=== PATIENT | female | born 1930 | race Caucasian/White ===

== ENCOUNTER 2019-04-12 19:33 | Emergency (ER) | payer OTHER ==
[~2019-04-12] VITALS: Ht 167.6 cm; Wt 63.5 kg
--- NOTE | 2019-04-12 19:36 | NUR ---
PT BIBRA78, PER EMS GLF FROM [place], L WRIST DEFORMITY, R FA ABRASION. PT AXO2. RESPIRATIONS EVEN AND UNLABORED. 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 PENDING EVAL FROM ER .
[2019-04-12] MEDS ORDERED: ONDANSETRON HCL/PF 4 MG/2 ML VIAL IVP ONE (20:00)
[2019-04-12] MEDS ORDERED: IV NS 0.9% 1,000 ML BAG IV ONE (20:00)
[2019-04-12] MEDS ORDERED: MORPHINE SULFATE INJ 2 MG/ML DISP.SYRIN IV ONE (20:00)
[2019-04-12 20:05] LABS: BASOPHILS % (AUTO) 0.4 % (0.0-2.0); EOSINOPHILS % (AUTO) 1.2 % (0.0-6.0); HEMATOCRIT 41 % (33-45); HEMOGLOBIN 13.5 g/dL (11.5-14.8); LYMPHOCYTES # (AUTO) 2.1 /CMM (0.8-4.8); MEAN CORPUSCULAR HGB CONC 33 g/dl (31.0-36.0); MEAN CORPUSCULAR VOLUME 93 fL (82-100); MONOCYTES # (AUTO) 0.6 /CMM (0.1-1.30); MONOCYTES % (AUTO) 8.9 % (2.0-12.0); NEUTROPHILS # (AUTO) 4.3 /CMM (1.8-8.9); NEUTROPHILS % (AUTO) 60.5 % (43.0-81.0); PLATELET COUNT (AUTO) 240 /CMM (150-450); RED BLOOD CELL COUNT(AUTO) 4.34 MIL/uL (4.0-5.2); WHITE BLOOD COUNT (AUTO) 7.1 K/uL (4.3-11.0)
[2019-04-12] MEDS ORDERED: ONDANSETRON HCL/PF 4 MG/2 ML VIAL ONE (20:05)
[2019-04-12] MEDS ORDERED: MORPHINE SULFATE INJ 4 MG/ML DISP.SYRIN ONE (20:05)
[2019-04-12 20:12] LABS: CALCIUM, SERUM 9.2 mg/dL (8.5-10.1); POTASSIUM 4.7 mmol/L (3.5-5.1)
--- NOTE | 2019-04-12 20:18 | NUR ---
XRAY AT BEDSIDE.
[2019-04-12 20:25] VITALS: BP 147/52
--- NOTE | 2019-04-12 20:56 | NUR ---
PT RESTING IN BED, NAD NOTED. WILL CONTINUE TO MONITOR.
--- NOTE | 2019-04-12 21:44 | NUR ---
CALL FROM [place] [facility]. PT ACCEPTED TO [facility] BY DR PAIZ. # FOR REPORT [phone]
--- NOTE | 2019-04-12 21:54 | NUR ---
REPORT GIVEN TO NIMCO POSADA AT [place] FOR [facility].
== END 2019-04-12 22:04 | disposition short-term general hospital (02) ==
LOC: ER 19:35
DX: S52.592A Other fractures of lower end of left radius, initial encounter for closed fracture (principal); S52.612A Displaced fracture of left ulna styloid process, initial encounter for closed fracture; R10.2 Pelvic and perineal pain; G30.9 Alzheimer's disease, unspecified; F02.80 Dementia in other diseases classified elsewhere, unspecified severity, without behavioral disturbance, psychotic disturbance, mood disturbance, and anxiety; I10 Essential (primary) hypertension; K21.9 Gastro-esophageal reflux disease without esophagitis; Z88.6 Allergy status to analgesic agent; Z88.9 Allergy status to unspecified drugs, medicaments and biological substances; Z88.8 Allergy status to other drugs, medicaments and biological substances; W18.39XA Other fall on same level, initial encounter; Y93.89 Activity, other specified; Y92.89 Other specified places as the place of occurrence of the external cause; Y99.8 Other external cause status
CPT/HCPCS: 25605; 36415; 71045; 72170; 73100; 80048; 85025; 85730; 96374; 96375; 99285; J2270; J2405; J7030

== ENCOUNTER 2019-04-21 09:24 | Emergency (ER) | payer OTHER ==
[~2019-04-21] VITALS: Ht 157.5 cm; Wt 63.5 kg
[2019-04-21] MEDS ORDERED: LOPE-195 PO (09:33)
[2019-04-21] MEDS ORDERED: CALC500T52 PO (09:33)
[2019-04-21] MEDS ORDERED: DONE10TA44 PO (09:33)
[2019-04-21] MEDS ORDERED: ATOR10TA PO (09:33)
[2019-04-21] MEDS ORDERED: CHOL100044 PO (09:33)
[2019-04-21] MEDS ORDERED: MELO-105 PO (09:33)
[2019-04-21] MEDS ORDERED: HYDR12.55 PO (09:33)
[2019-04-21] MEDS ORDERED: LISI40TA4 PO (09:33)
[2019-04-21] MEDS ORDERED: OMEP20CA11 PO (09:33)
[2019-04-21] MEDS ORDERED: BIOT1TAB PO (09:33)
--- NOTE | 2019-04-21 09:39 | NUR ---
PT BIBA RA 78 From "[place] witnessed tonic/clonic sz by staff lasting minute." PT IS AAOX1, NOT IN RESPIRATORY DISTRESS, HOOKED TO MONITOR, KEPT RESTED AND COMFORTABLE, WILL CONTINUE TO MONITOR.
--- NOTE | 2019-04-21 09:45 | NUR ---
SEEN AND EXAMINED BY .
[2019-04-21] MEDS ORDERED: IV NS 0.9% 500 ML BAG IV ONE (10:00)
--- NOTE | 2019-04-21 10:00 | NUR ---
IV LINE ESTABLISHED, BLOOD DRAWNED AND SENT TO LAB.
[2019-04-21 10:10] LABS: BASOPHILS # (AUTO) 0.1 /CMM (0.0-0.2); BASOPHILS % (AUTO) 0.7 % (0.0-2.0); EOSINOPHILS % (AUTO) 1.1 % (0.0-6.0); HEMATOCRIT 43 % (33-45); HEMOGLOBIN 14.2 g/dL (11.5-14.8); LYMPHOCYTES # (AUTO) 1.8 /CMM (0.8-4.8); MEAN CORPUSCULAR HGB CONC 33 g/dl (31.0-36.0); MEAN CORPUSCULAR VOLUME 94 fL (82-100); MONOCYTES # (AUTO) 0.5 /CMM (0.1-1.30); MONOCYTES % (AUTO) 6.2 % (2.0-12.0); NEUTROPHILS # (AUTO) 5.8 /CMM (1.8-8.9); PLATELET COUNT (AUTO) 275 /CMM (150-450); RED BLOOD CELL COUNT(AUTO) 4.53 MIL/uL (4.0-5.2); WHITE BLOOD COUNT (AUTO) 8.4 K/uL (4.3-11.0)
[2019-04-21 10:18] LABS: CALCIUM, SERUM 9.1 mg/dL (8.5-10.1); CREATININE 0.9 mg/dL (0.6-1.3); POTASSIUM 4.3 mmol/L (3.5-5.1)
[2019-04-21 10:24] LABS: ALBUMIN 3.5 g/dL (3.4-5.0); BILIRUBIN,DIRECT 0.1 mg/dL (0.0-0.2); BILIRUBIN,TOTAL 0.5 mg/dL (0.2-1.0); TOTAL PROTEIN, SERUM 6.6 g/dL (6.4-8.2)
--- NOTE | 2019-04-21 10:24 | NUR ---
URINE SPECIMEN COLLECTED AND SENT TO LAB.
--- NOTE | 2019-04-21 10:40 | NUR ---
BATTER DEPOSITOR AT BEDSIDE FOR XRAY.
--- NOTE | 2019-04-21 10:45 | NUR ---
PT IS WHEELED TO CT SCAN [facility]IA [facility].
--- NOTE | 2019-04-21 12:02 | NUR ---
CALLED [facility] PRODUCTION HAND GABRIEL RDZ MD, AWAITING CALL BACK
--- NOTE | 2019-04-21 12:44 | NUR ---
TRANSFER INFO:MD DAKOTAH WALSH J. RN FOR REPORT [phone], [facility] ETA [phone]
--- NOTE | 2019-04-21 12:45 | NUR ---
CALLED [facility] FOR REPORT, NO ANSWER.
--- NOTE | 2019-04-21 13:06 | NUR ---
REPORT GIVEN TO ALBINO DONIS FOR [facility] IN [facility].
--- NOTE | 2019-04-21 13:12 | NUR ---
REPORT GIVEN TO EMT FOR PT TRANSFER TO [facility].
[2019-04-21 13:19] VITALS: BP 139/59
== END 2019-04-21 13:20 | disposition short-term general hospital (02) ==
LOC: ER 09:24
DX: R56.9 Unspecified convulsions (principal); K21.9 Gastro-esophageal reflux disease without esophagitis; G30.9 Alzheimer's disease, unspecified; F02.80 Dementia in other diseases classified elsewhere, unspecified severity, without behavioral disturbance, psychotic disturbance, mood disturbance, and anxiety; I10 Essential (primary) hypertension; Z88.6 Allergy status to analgesic agent; Z88.9 Allergy status to unspecified drugs, medicaments and biological substances; Z88.8 Allergy status to other drugs, medicaments and biological substances
CPT/HCPCS: 36415; 70450; 71045; 80048; 80076; 80305; 85025; 93005; 99285; J7040

== ENCOUNTER 2019-05-03 01:15 | Emergency (ER) | payer OTHER ==
[~2019-05-03] VITALS: Ht 157.5 cm; Wt 62.6 kg
[~2019-05-03 01:15] MED LIST: ATOR10TA PO; BIOT1TAB PO; CALC500T52 PO; CHOL100044 PO; DONE10TA44 PO; HYDR12.55 PO; LISI40TA4 PO; LOPE-195 PO; MELO-105 PO; OMEP20CA11 PO
--- NOTE | 2019-05-03 01:26 | NUR ---
TIMUR FROM [facility]. TO ER BED 9. AAOX1 W/ CONFUSION. NO RESP DISTRESS NOTED. BROUGHT IN FOR UNWITNESSED GLF. PER EMS REPORT, PT WAS FOUND DOWN BY STAFF. PT DENIES OF ANY PAIN WHEN STATIONARY BUT NOTED PAIN IS PRESENT WHEN MOVING. L LOWER EXTREMETY IS POSITIVE FOR SHORTENING AND EXTERNAL ROTATION. MD AT BEDSIDE FOR EVAL. ORDERS RECEIVED NOTED, AND CARRIED OUT. PT TO CT ON [facility].
--- NOTE | 2019-05-03 01:28 | NUR ---
PT IS ALSO NOTED WITH A LEFT UPPER EXTREMETY CAST FROM A PREVIOUS FALL, NO REPORT FROM EMS FOR EXACT DATE
[2019-05-03] MEDS ORDERED: MORPHINE SULFATE INJ 2 MG/ML DISP.SYRIN ONE (01:50)
[2019-05-03] MEDS ORDERED: ONDANSETRON HCL/PF 4 MG/2 ML VIAL ONE (01:50)
--- NOTE | 2019-05-03 01:55 | NUR ---
[facility] CALLED, WILL C/B FOR MD TO MD CONSULT.
[2019-05-03] MEDS ORDERED: ONDANSETRON HCL/PF 4 MG/2 ML VIAL IVP ONE (02:00)
[2019-05-03] MEDS ORDERED: IV NS 0.9% 500 ML BAG IV ONE (02:00)
[2019-05-03] MEDS ORDERED: MORPHINE SULFATE INJ 2 MG/ML DISP.SYRIN IV ONE (02:00)
--- NOTE | 2019-05-03 02:16 | NUR ---
ACCEPTED AT [facility] BY DR. PIMENTEL CALL ER [phone] FOR REPORT. [facility] ETA 310.
[2019-05-03 02:22] LABS: BASOPHILS # (AUTO) 0.1 /CMM (0.0-0.2); BASOPHILS % (AUTO) 0.6 % (0.0-2.0); EOSINOPHILS % (AUTO) 1.1 % (0.0-6.0); HEMATOCRIT 42 % (33-45); HEMOGLOBIN 13.9 g/dL (11.5-14.8); LYMPHOCYTES # (AUTO) 1.7 /CMM (0.8-4.8); LYMPHOCYTES % (AUTO) 16.6 % (20.0-44.0); MEAN CORPUSCULAR HGB CONC 33 g/dl (31.0-36.0); MEAN CORPUSCULAR VOLUME 94 fL (82-100); MONOCYTES # (AUTO) 0.8 /CMM (0.1-1.30); MONOCYTES % (AUTO) 7.4 % (2.0-12.0); NEUTROPHILS # (AUTO) 7.8 /CMM (1.8-8.9); NEUTROPHILS % (AUTO) 74.3 % (43.0-81.0); PLATELET COUNT (AUTO) 287 /CMM (150-450); RED BLOOD CELL COUNT(AUTO) 4.48 MIL/uL (4.0-5.2); WHITE BLOOD COUNT (AUTO) 10.5 K/uL (4.3-11.0)
[2019-05-03 02:30] LABS: CALCIUM, SERUM 8.4 mg/dL (8.5-10.1); CARBON DIOXIDE 26 mmol/L (21-32); CHLORIDE 108 mmol/L (98-107); CREATININE 0.7 mg/dL (0.6-1.3); GLUCOSE 102 mg/dL (74-106); POTASSIUM 5.1 mmol/L (3.5-5.1); SODIUM SERUM 144 mmol/L (136-145); UREA NITROGEN, BLOOD 17 mg/dL (7-18)
--- NOTE | 2019-05-03 02:34 | NUR ---
CALLED [facility] FOR REPORT, PLACED ON HOLD NO ANSWER
--- NOTE | 2019-05-03 02:38 | NUR ---
CALLED AGAIN FOR THE 2ND TIME TO GIVE REPORT. SPOKE WITH AIXA PLACED ON HOLD NO ANSWER BACK
--- NOTE | 2019-05-03 02:55 | NUR ---
REPORT GIVEN TO NHAN, CHARGE NURSE FOR [facility] AT [facility]
[2019-05-03 03:04] VITALS: BP 148/88
--- NOTE | 2019-05-03 03:19 | NUR ---
[facility] AMB 98 AT BEDSIDE FOR PT TRANSPORT TO [facility]. REPORT GIVEN. PT IS STABLE FOR TRANSPORT. NAD NOTED.
== END 2019-05-03 03:24 | disposition short-term general hospital (02) ==
LOC: ER 01:15
DX: S72.142A Displaced intertrochanteric fracture of left femur, initial encounter for closed fracture (principal); I10 Essential (primary) hypertension; K21.9 Gastro-esophageal reflux disease without esophagitis; G30.9 Alzheimer's disease, unspecified; F02.80 Dementia in other diseases classified elsewhere, unspecified severity, without behavioral disturbance, psychotic disturbance, mood disturbance, and anxiety; Z88.6 Allergy status to analgesic agent; Z88.8 Allergy status to other drugs, medicaments and biological substances; Z79.899 Other long term (current) drug therapy; W18.39XA Other fall on same level, initial encounter; Y93.89 Activity, other specified; Y92.89 Other specified places as the place of occurrence of the external cause; Y99.8 Other external cause status
CPT/HCPCS: 36415; 70450; 73503; 80048; 85025; 85730; 96374; 96375; 99285; J2270; J2405; J7040; 73502

== ENCOUNTER 2019-06-08 10:04 | Emergency (ER) | payer OTHER ==
[~2019-06-08] VITALS: Ht 162.6 cm; Wt 61.2 kg
--- NOTE | 2019-06-08 10:08 | NUR ---
pt brought in by paramedics for seizures witnessed by pediatric care coordinator pt lives in [facility]. currently pt alert and awake in [facility] by md cochran in [facility] will continue to monitor.
[2019-06-08] MEDS ORDERED: LEVETIRACETAM (500MG) 500 MG in IV NS 0.9% 100 ML IV SCH (11:00)
--- NOTE | 2019-06-08 11:04 | NUR ---
daughter at bedside refused PIV and seizure medication pt is a [employer] member
[2019-06-08 11:11] LABS: BASOPHILS % (AUTO) 0.4 % (0.0-2.0); EOSINOPHILS % (AUTO) 0.7 % (0.0-6.0); HEMATOCRIT 45 % (33-45); HEMOGLOBIN 14.8 g/dL (11.5-14.8); LYMPHOCYTES # (AUTO) 1.6 /CMM (0.8-4.8); LYMPHOCYTES % (AUTO) 18.7 % (20.0-44.0); MEAN CORPUSCULAR HGB CONC 33 g/dl (31.0-36.0); MEAN CORPUSCULAR VOLUME 93 fL (82-100); MONOCYTES # (AUTO) 0.5 /CMM (0.1-1.30); MONOCYTES % (AUTO) 5.5 % (2.0-12.0); NEUTROPHILS # (AUTO) 6.2 /CMM (1.8-8.9); NEUTROPHILS % (AUTO) 74.7 % (43.0-81.0); PLATELET COUNT (AUTO) 244 /CMM (150-450); RED BLOOD CELL COUNT(AUTO) 4.87 MIL/uL (4.0-5.2); WHITE BLOOD COUNT (AUTO) 8.4 K/uL (4.3-11.0)
[2019-06-08 11:22] LABS: CALCIUM, SERUM 8.9 mg/dL (8.5-10.1); CREATININE 0.9 mg/dL (0.6-1.3); POTASSIUM 4.5 mmol/L (3.5-5.1)
--- NOTE | 2019-06-08 12:31 | NUR ---
pt discharge to daughter and at daughter's request who will take pt to [facility] pt stable dressed appropriately
[2019-06-08 12:37] VITALS: BP 146/70
== END 2019-06-08 12:37 | disposition home or self-care (01) ==
LOC: ER 10:06
DX: G40.909 Epilepsy, unspecified, not intractable, without status epilepticus (principal); G30.9 Alzheimer's disease, unspecified; I10 Essential (primary) hypertension; K21.9 Gastro-esophageal reflux disease without esophagitis; Z88.6 Allergy status to analgesic agent; Z79.899 Other long term (current) drug therapy; Z88.9 Allergy status to unspecified drugs, medicaments and biological substances; Z88.8 Allergy status to other drugs, medicaments and biological substances
CPT/HCPCS: 36415; 80048-TC; 85025-TC; J1953; J7030

== ENCOUNTER 2019-11-17 09:31 | Emergency (ER) | payer OTHER ==
[~2019-11-17] VITALS: Ht 160 cm; Wt 54.0 kg
[~2019-11-17 09:31] MED LIST changes: -OMEP20CA11 PO; +OMEP20CA15 PO
[2019-11-17] MEDS ORDERED: TRAMADOL HCL 50 MG TABLET ONE (09:44)
[2019-11-17] MEDS ORDERED: VIT1CAPS4 PO (09:56)
--- NOTE | 2019-11-17 09:59 | NUR ---
PT REC'D TO ER VIA EMS FROM [facility] WHILE WALKING HIT LEFT SIDE FOREHEAD ABRASION REDNESS . RT HAND PAIN HOLDING IT LEFT ARM SNELL TEAR CLENED DRESSEED OLD SKIN TEARS NOTED . NO TALKING DEMETIA MONITORS APPLIED DNR
[2019-11-17] MEDS ORDERED: TRAMADOL HCL 50 MG TABLET PO ONE (10:00)
--- NOTE | 2019-11-17 10:01 | NUR ---
GIVEN ULTRAM 50 GMG PO TOLERATED WELL
--- NOTE | 2019-11-17 10:13 | NUR ---
SENT HER TO CT
--- NOTE | 2019-11-17 10:54 | NUR ---
CALLED [facility] [phone] KWONG WILL CALL US BACK
--- NOTE | 2019-11-17 10:55 | NUR ---
pt stable transfer back to [facility]
--- NOTE | 2019-11-17 11:26 | NUR ---
[facility] CALLED. AMBULANCE TRANSFER ETA 1230.
--- NOTE | 2019-11-17 13:09 | NUR ---
Patient discharged to home in stable condition. Written and verbal after care instructions given. Patient verbalizes understanding of instruction.
[2019-11-17 13:11] VITALS: BP 155/70
== END 2019-11-17 13:11 ==
LOC: ER 09:32
DX: S00.83XA Contusion of other part of head, initial encounter (principal); M25.531 Pain in right wrist; I10 Essential (primary) hypertension; K21.9 Gastro-esophageal reflux disease without esophagitis; G30.9 Alzheimer's disease, unspecified; F02.80 Dementia in other diseases classified elsewhere, unspecified severity, without behavioral disturbance, psychotic disturbance, mood disturbance, and anxiety; Z88.6 Allergy status to analgesic agent; Z88.8 Allergy status to other drugs, medicaments and biological substances; Z79.899 Other long term (current) drug therapy; W18.39XA Other fall on same level, initial encounter; Y93.89 Activity, other specified; Y92.89 Other specified places as the place of occurrence of the external cause; Y99.8 Other external cause status
CPT/HCPCS: 70450-TC; 73090-TC; 73100-TC

== ENCOUNTER 2021-05-12 11:49 | Emergency (ER) | payer OTHER ==
[~2021-05-12] VITALS: Ht 160 cm; Wt 54.4 kg
[~2021-05-12 11:49] MED LIST changes: +LISI40TA13 PO; -LISI40TA4 PO; +VIT1CAPS4 PO
--- NOTE | 2021-05-12 12:00 | NUR ---
BIBRA78 C/O RIGHT HAND SWELLING X 10 DAYS. PT IS SLEEPING, AROUSABLE TO TOUCH AND PAIN. PLACED ON 3L NASAL CANULLA. PULSE OX 98%
--- NOTE | 2021-05-12 12:03 | NUR ---
CALLED [facility] [phone] PT PFIZER AUG 12 AND Aug PT NEGATIVE OF 05/07/2021 PER FE.
--- NOTE | 2021-05-12 13:33 | NUR ---
ULTRASOUND AT BEDSIDE
--- NOTE | 2021-05-12 13:41 | NUR ---
PT PLACED ON SIMPLE FACE MASK AT 6L, PULSE OX 93%
--- NOTE | 2021-05-12 13:42 | NUR ---
NOTIFIED OF O2 SAT. SWITCHED TO SIMPLE FACE MASK
--- NOTE | 2021-05-12 14:22 | NUR ---
CALLED [facility] [phone] FOR TRANSPORT.
--- NOTE | 2021-05-12 14:24 | NUR ---
[facility] [address] [place] [id number]
--- NOTE | 2021-05-12 16:25 | NUR ---
PICKED UP BY SH[facility]
--- NOTE | 2021-05-12 16:25 | NUR ---
Patient discharged to home in stable condition. Written and verbal after care instructions given. Patient verbalizes understanding of instruction. Addendum: 05/12/21 at 1722 by LEV PT'S DAUGHTER VERBALIZES UNDERSTANDING, PT IS NOT SPEAKING.
[2021-05-12 17:22] VITALS: BP 127/70
== END 2021-05-12 16:25 | disposition home or self-care (01) ==
LOC: ER 11:50
DX: R60.0 Localized edema (principal); G30.9 Alzheimer's disease, unspecified; F02.80 Dementia in other diseases classified elsewhere, unspecified severity, without behavioral disturbance, psychotic disturbance, mood disturbance, and anxiety; K21.9 Gastro-esophageal reflux disease without esophagitis; I10 Essential (primary) hypertension; Z88.6 Allergy status to analgesic agent; Z88.8 Allergy status to other drugs, medicaments and biological substances; Z79.899 Other long term (current) drug therapy
CPT/HCPCS: 73090-TC; 73130-TC; 93971-TC